=== PATIENT | female | born 1960 | race Caucasian/White ===

== ENCOUNTER → 2017-09-21 | Outpatient (CLI) | payer MEDICARE, OTHER ==
--- NOTE | 2017-09-21 14:57 | RAD ---
History: Right hip pain for 3 weeks, fracture with surgical repair in 2016. Comparison: None. Findings: AP and frog-leg views of the right hip. 3 orthopedic fixation screws are seen involving the right femoral neck. No acute fracture or dislocation is identified. There does appear to be a mild amount of lucency involving the femoral head adjacent to the 2 superior screws. Consequently, avascular necrosis may be possible. Impression: 1. There is a small focus of relative lucency involving the femoral head adjacent to to the surgical screws. Findings may represent avascular necrosis. 2. No acute fracture or dislocation is identified. Electronically signed by: Koby Grossman MD (09/21/2017 2:54 PM) [facility]
== END | disposition home or self-care (01) ==
LOC: PMG 14:34
PROVIDERS: ATTEND Physician Assistant Medical
DX: M25.551 Pain in right hip (principal)
CPT/HCPCS: 73502